=== PATIENT | female | born 1990 | race Caucasian/White ===

== ENCOUNTER 2019-09-18 10:54 | Emergency (ER) | payer SELFPAY ==
[2019-09-18 11:08] VITALS: BP 123/93; PULSE 79; RESP 16; TEMP 36.6; O2SAT 99; BMI 19.5
--- NOTE | 2019-09-18 11:33 | ED_ITS ---
HPI - Abdominal Pain General: Chief Complaint: Abdominal Pain Stated Complaint: blood in urine, reports pelvic pain for 2 days with clots, patient completed menstral cycle yesterday, states clots are from urine, AZO has helped with pain Time Seen by Provider: 09/18/19 11:24 History of Present Illness: Associated Symptoms: Reports dysuria and hematuria; Denies chills and fever(s) Related Data: Date of Last Menstrual Period: 09/11/19 Review of Systems Const: Reports: malaise; Denies: fever or chills Eyes: Denies: eye discomfort ENMT: Denies: throat pain, ear pain or nasal congestion Card: Denies: chest pain Resp: Denies: shortness of breath GI: Denies: abdominal pain : Reports: difficulty urinating, painful urination and blood in urine Musc: Denies: back pain Skin/Breast: Denies: rash or itching Neuro: Denies: headache PFSH ED PFSH: Statuses (acute, chronic, etc) shown below reflect problem list status as previously entered and may not be historically accurate Social History Smoking and tobacco status: current every day smoker Female Reproductive History: Date of last menstrual period: 09/11/19 Physical Exam Const: COMMON NORMALS: no apparent distress, oriented x3 and healthy appearing HENMT: COMMON NORMALS: normocephalic and external nose normal HEAD & SCALP: normocephalic FACE & SINUS: normal facial exam NOSE: external nose normal THROAT: posterior oropharynx normal Eye: COMMON NORMALS: PERRL and EOMs intact bilaterally PUPIL: Yes PERRL Neck/C-Spine: COMMON NORMALS: full ROM Lymph: LYMPHATIC: no lymphadenopathy noted Chest: COMMONS NORMALS: inspection of chest normal Resp: COMMON NORMALS: normal respiratory effort and clear to auscultation bilaterally AUSCULTATION: clear to auscultation bilaterally GI: COMMON NORMALS: normal to inspection, nondistended, normoactive bowel katharine nds, soft to palpation and non-tender PALPATION: Yes soft : COMMON NORMALS: Yes no CVA tenderness and Yes external appearance normal BLADDER/KIDNEY EXAM: Yes no CVA tenderness EXTERNAL FEMALE EXAM: Yes normal appearance of the urethra SPECULUM EXAM - VAGINA: Yes vaginal discharge SPECULUM EXAM - CERVIX: Yes cervical os closed Back/Pelvis: COMMON NORMALS: no CVA tenderness Extremity: COMMON NORMALS: normal to inspection and no pedal edema Neuro: COMMON NORMALS: oriented x3 Skin: COMMON NORMALS: no rashes or lesions noted GENERAL SKIN EXAM: no rashes or lesions noted Course Vital Signs: Vital signs: Vital Signs Temperature 97.9 F 09/18/19 11:08 Pulse Rate 70 09/18/19 12:00 Respiratory Rate 18 09/18/19 12:00 Blood Pressure 109/80 09/18/19 12:00 Pulse Oximetry 99 09/18/19 12:00 MDM - Abdominal Pain MDM Narrative: Medical decision making narrative: patient comes today for complaints of abdominal pain in suprapubic area. On exam patient has soft abdomen tenderness in the pubic area, no CVA tenderness. Respirations are even lungs are clear to auscultation. Pelvic exam noted some increased vaginal discharge but otherwise normal. Differential diagnosis STI, PID, bacterial vaginosis, cystitis, UTI. A values were significant for a wet prep positive clue cells, urine was positive white blood cells and large amount red blood cells. Reviewed exam with patient recommended treatment for bacterial vaginosis and cystitis. Encourage clear fluids reviewed that, and chlamydia would be outstanding but will contact when completed. Lab Data: Labs: Lab Results 09/18/19 09/18/19 Range/Units 11:56 11:56 Urine Color [place] (Yellow) Urine Appearance Cloudy (CLEAR) Urine pH 7.0 (5-7) Ur Specific Gravit y 1.030 (1.005-1.030) Urine Protein 3+ H (Negative) Urine Glucose (UA) Norm (Normal) Urine Ketones Negative (Negative) Urine Occult Blood 3+ H (Negative) Urine Nitrate Negative (Negative) Urine Bilirubin 3+ H (NEGATIVE) Urine Urobilinogen 4+ H (Negative) mg/dL Ur Leukocyte Edwige ase Negative (Negative) Urine RBC >100 H (0-2) /hpf Urine WBC 10-15 H (0-5) /hpf Ur Squamous Epith Cells 5-10 H (0-5) Urine Bacteria Trace (NONE) Urine Mucus 1+ Urine HCG, Qual Negative (Negative) Discharge Plan Discharge Patient Disposition: Home, Self-Care Clinical Impression: Bacterial vaginitis, Cystitis Condition: Stable Prescriptions: New cephalexin 500 mg capsule 500 mg PO Q12H 7 Days Qty: 14 RF: 0 metronidazole [Flagyl] 500 mg tablet 500 mg PO BID 7 Days Qty: 14 RF: 0 No Action Pending RF: 0 Referrals: Josie Fernando FNP [Primary Care Provider] - Discharge Diet: Advance as tolerated Discharge Activity: Resume usual activity Activity Restrictions/Additional Instructions: Drink plenty of fluids Healthy diet and activity Follow-up with primary care in one week Return to ER for high fever or worsening symptoms Coding Level of Care Code ED Filter Changing Technician for Sammi Barron Exam Problem Focused
[2019-09-18 11:51] VITALS: BP 109/80; PULSE 70; RESP 18; O2SAT 99
[2019-09-18 12:00] VITALS: BP 109/80; PULSE 70; RESP 18; O2SAT 99
--- NOTE | 2019-09-18 12:32 | PC.NURSE ---
RN assisted Mando Garcias SENIOR CLINICAL RESEARCH ASSOCIATE with pelvic exam. Vaginal cultures obtained, labeled and taken to lab.
[2019-09-18 12:37] LABS: Bilirubin Urine 3+ (NEGATIVE); Blood Urine 3+ (Negative); Glucose Urine UA Norm (Normal); Ketones Urine Negative (Negative); Leukocyte Esterase Urine Negative (Negative); Nitrate Urine Negative (Negative); Protein Urine 3+ (Negative); Urine Appearance Cloudy (CLEAR); Urine Color Orange (Yellow); Urobilinogen Urine 4+ mg/dL (Negative)
[2019-09-18 12:38] LABS: RBC Urine >100 /hpf (0-2)
[2019-09-18 12:39] LABS: Add Urine Culture? Yes; Bacteria Urine TRACE; Mucus Urine 1+
--- NOTE | 2019-09-18 12:44 | PC.NURSE ---
Discharge was reddish brown in color.
[2019-09-18 14:19] VITALS: BP 129/86; PULSE 64; RESP 16; TEMP 36.8; O2SAT 98
== END 2019-09-18 14:22 | disposition home or self-care (01) ==
LOC: ER 14:31
PROVIDERS: Nurse Practitioner Family; Emergency Provider Emergency Medicine; Family Provider Nurse Practitioner; PCP Nurse Practitioner
DX: N76.0 Acute vaginitis (principal); N30.90 Cystitis, unspecified without hematuria; F17.210 Nicotine dependence, cigarettes, uncomplicated
CPT/HCPCS: 81001; 81025; 87086; 87210; 87491; 87591; 99283; A9270; E0352

== ENCOUNTER → 2019-09-23 15:04 | Outpatient (BNVA) | payer SELFPAY | PROVIDERS: Family Provider Nurse Practitioner; PCP Nurse Practitioner; Visit Provider Nurse Practitioner | DX: J02.9 Acute pharyngitis, unspecified (principal) | CPT/HCPCS: 87081; 87880 ==

== ENCOUNTER → 2019-11-05 14:47 | Outpatient (BNVA) | payer SELFPAY | PROVIDERS: Family Provider Nurse Practitioner; PCP Nurse Practitioner; Visit Provider Nurse Practitioner | DX: J11.1 Influenza due to unidentified influenza virus with other respiratory manifestations (principal); G43.909 Migraine, unspecified, not intractable, without status migrainosus | CPT/HCPCS: 87804 ==

== ENCOUNTER 2019-12-11 05:58 | Emergency (ER) | payer SELFPAY ==
[2019-12-11 06:06] VITALS: BP 142/92; PULSE 99; RESP 18; TEMP 36.9; O2SAT 99; BMI 19.7
--- NOTE | 2019-12-11 06:07 | ED_ITS ---
HPI - General Adult General: Chief complaint: General Medical Stated complaint: throat swelling Time Seen by Provider: 12/11/19 06:07 History of Present Illness: HPI narrative: 29-year-old female Associated symptoms: Deny chest pain, dyspnea, malaise, nausea, rash or vomiting Review of Systems Const: Denies: fever, chills, body aches, change in appetite, fatigue or malaise ENMT: Denies: throat pain, ear pain, nasal discharge or nasal congestion Card: Denies: chest pain, edema, shortness of breath on exertion or shortness of breath when lying down Resp: Denies: shortness of breath, productive cough or non-productive cough GI: Denies: abdominal pain, nausea, vomiting, vomiting blood, coffee grounds in vomit, diarrhea, constipation, bloating, blood in stool or black tarry stool : Denies: flank pain, difficulty urinating, painful urination, urinary frequency or urinary urgency Skin/Breast: Denies: rash or itching PFSH ED PFSH: Social History (Updated 11/05/19 @ 14:45 by Kiara Mccurdy LPN) Smoking and tobacco status: current every day smoker Alcohol intake: current Female Reproductive History: Date of last menstrual period: 09/11/19 Physical Exam Const: COMMON NORMALS: no apparent distress GENERAL APPEARANCE: cooperative and comfortable ORIENTATION/CONSCIOUSNESS: Yes awake, Yes oriented to person, Yes oriented to place and Yes oriented to time HENMT: COMMON NORMALS: normocephalic, head/scalp atraumatic, hearing grossly normal bilaterally, external ears normal, EAC's normal, TM's normal bilaterally, nasal mucous membranes and turbinates normal and moist oral mucous membranes HEAD & SCALP: normocephalic and atraumatic NOSE: nasal mucous membranes and turbinates normal EXTERNAL EAR: Yes external ears normal EXTERNAL AUDITORY CANAL: EAC's normal TYMPANIC MEMBRANE: TM's normal bilaterally OTHER: Right half of the soft palate and uvula and tonsillar pillars are mildly edematous and erythematous there is no exudate. No evidence of abscess. No lacerations or petechiae. Eye: COMMON NORMALS: PERRL, EOMs intact bilaterally, conjunctivae normal and no scleral icterus CONJUNCTIVA: Yes conjunctivae normal PUPIL: Yes PERRL Neck/C-Spine: COMMON NORMALS: full ROM, no lymphadenopathy, supple and no JVD Lymph: LYMPHATIC: no lymphadenopathy noted and no lymphedema noted OTHER: No submandibular cervical lymphadenopathy is noted Resp: COMMON NORMALS: normal respiratory effort, no retractions, no use of accessory muscles and clear to auscultation bilaterally AUSCULTATION: clear to auscultation bilaterally Cardio: COMMON NORMALS: no JVD, regular rate, regular rhythm and no murmurs RATE: regular rate RHYTHM: regular rhythm GI: COMMON NORMALS: soft to palpation and no hepatosplenomegaly AUSCULTATION: Yes normoactive bowel sounds PALPATION: Yes soft, No tender, No guarding and Yes no hepatosplenomegaly Extremity: COMMON NORMALS: normal to inspection, normal capillary refill, no clubbing, cyanosis or edema, no calf tenderness and no pedal edema Neuro: SENSORIUM/ORIENTATION: Yes oriented to person, Yes oriented to place and Yes oriented to time Skin: COMMON NORMALS: no rashes or lesions noted GENERAL SKIN EXAM: no rashes or lesions noted Course Vital Signs: Vital signs: Vital Signs Temperature 98.4 F 12/11/19 06:06 Pulse Rate 78 12/11/19 08:42 Respiratory Rate 19 H 12/11/19 08:42 Blood Pressure 133/85 12/11/19 08:42 Pulse Oximetry 97 12/11/19 08:42 MDM - General Adult MDM Narrative: Medical decision making narrative: Strep is negative. The swelling and erythema are fairly impressive there is no evidence of trauma we will go ahead and discharge her home on clindamycin. She was treated with steroids and anti-inflammatories here she can continue to use ibuprofen as needed Lab Data: Labs: Lab Results 12/11/19 12/11/19 Range/Units 06:11 06:38 Influenza Type A A g Negative (Negative) POC Influenza B Ag Negative (Negative) Group A Strep Rapi d Negative (Negative) Discharge Plan Discharge Patient Disposition: Home, Self-Care Clinical Impression: Pharyngitis, acute Condition: Stable Prescriptions: New clindamycin HCl 300 mg capsule 300 mg PO Q6H 7 Days Qty: 28 RF: 0 Discharge Orders: Discharge Order (Routine); Ordered 12/11/19 Ordered By: Juan Luis Weaver Referrals: Josie Fernando FNP [Primary Care Provider] - Discharge Diet: Advance as tolerated Discharge Activity: Resume usual activity Activity Restrictions/Additional Instructions: Follow-up with your doctor in 5 days if not improving Discharge Date/Time: 12/11/19 08:42 Coding Level of Care Code ED Development Scientist for Sammi Barron
[2019-12-11] MEDS: ketorolac 60 mg/2 mL INJ IM (06:33)
[2019-12-11 06:40] LABS: Rapid Strep A Test Negative (Negative)
[2019-12-11 06:58] LABS: Influenza A by IFA Negative (Negative); Influenza B by IFA Negative (Negative)
[2019-12-11 08:10] VITALS: BP 118/76; PULSE 69; O2SAT 98
[2019-12-11] MEDS: dexamethasone 10 mg/mL INJ IM (08:22)
[2019-12-11 08:42] VITALS: BP 133/85; PULSE 78; RESP 19; O2SAT 97
== END 2019-12-11 08:42 | disposition home or self-care (01) ==
PROVIDERS: Emergency Provider Family Medicine; Family Provider Nurse Practitioner; PCP Nurse Practitioner
DX: J02.9 Acute pharyngitis, unspecified (principal); F17.200 Nicotine dependence, unspecified, uncomplicated
CPT/HCPCS: 12345; 87081; 87804; 87880; 96372; 99281; 99283; J1100; J1885

== ENCOUNTER 2020-03-05 12:04 | Emergency (ER) | payer SELFPAY ==
[2020-03-05 12:31] VITALS: BP 112/83; PULSE 89; RESP 18; TEMP 36.7; O2SAT 98; BMI 21.6
--- NOTE | 2020-03-05 12:49 | ED_ITS ---
HPI - Extremity Problem General: Chief complaint: Extremity Injury, Upper Stated complaint: RIGHT ARM PAIN Time Seen by Provider: 03/05/20 12:30 Source: patient Mode of arrival: ambulatory Limitations: no limitations History of Present Illness: HPI Narrative: Patient is a 29-year-old female who presents to ED today with complaints of right arm pain that began yesterday/today. She has not had any recent injury or trauma to the extremity. Patient tells me she has a history of extensive trauma to the extremity after punching a window and stating the glass caused a severing of her radial artery. She also told me she had extensive muscular and tendon damage. Patient was transferred to [place] and had specialty vascular and orthopedic surgeries to repair the extremity. She tells me she does have chronic tendon damage since the surgery but overall has fairly good use of her extremity. Patient states she had not been having any problems with the extremity up until yesterday and into today when she began having pain about her right AC joint. Patient has not noticed any coolness/pallor, redness, swelling, sensory changes to the extremity. She denies IV drug use. MD Complaint: extremity pain Review of Systems Musc: Reports: extremity pain and joint pain (volar R elbow/AC space); Denies: extremity swelling, joint swelling, joint redness or joint warmth Neuro: Denies: numbness in extremities, weakness in extremities or sensory changes [facility] ED PFSH: Social History (Updated 11/05/19 @ 14:45 by Kiara Mccurdy LPN) Smoking and tobacco status: current every day smoker Alcohol intake: current Female Reproductive History: Date of last menstrual period: 02/24/20 Physical Exam Const: COMMON NORMALS: no acute distress, average body habitus, patient oriented x3, no limitations, healthy appearing, alert and well nourished Extremity: GENERAL: Yes normal exam except as noted OTHER: pt with exten sive previous surgical scar to volar R forearm; she has chronic tendon/muscle damage; she complains of pain to her R AC joint and reports she cannot fully extend her arm without pain; sensory appears to be intact; there is no swelling appreciated; cap refil intact Neuro: COMMON NORMALS: patient oriented x3 and no sensory deficits noted SENSORIUM/ORIENTATION: Yes alert Skin: NARRATIVE SKIN EXAM: previous R volar forearm scar; otherwise normal Course Vital Signs: Vital signs: Vital Signs Temperature 98.1 F 03/05/20 12:31 Pulse Rate 89 03/05/20 12:31 Respiratory Rate 18 03/05/20 12:31 Blood Pressure 112/83 03/05/20 12:31 Pulse Oximetry 98 03/05/20 12:31 MDM - Extremity (Nontraumatic) MDM Narrative: Medical decision making narrative: there is no evidence for infection, vascular compromise, DVT, compartment syndrome, or any other emergent process at this time; recommend she follow up with [facility] who performed her surgeries to further evaluate (will place info with CM to help get this set up); return to ED precautions given Imaging Data^: US venous : Radiologist's impression: [place] [address] Ultrasound Report Signed Patient: Varghese Heath #: [id number] : 1990Acct#:[id number] Age/Sex: 29 / FADM Date: 03/05/20 Loc: ERRoom/Bed: Attending Dr: Ordering Provider/Ordering MD: Montse Goldsmith Date of Service: 03/05/20 Procedure(s): [place] [id number] Accession Number(s): [id number] Report Number: [id number] PROCEDURE INFORMATION: Exam: US Duplex Right Upper Extremity Veins, Limited Exam date and time: 03/05/2020 12:49 PM Age: 29 years old Clinical indication: Pain; Arm, upper; Right; Prior surgery; Surgery type: Previous arterial resection/repair (antecubilar area) approximately 2 years ago; Additional info: Pain over ac joint TECHNIQUE: Imaging protocol: Real-time Duplex ultrasound of the Right Upper Extremity with 2-D jacob scale, color Doppler flow and spectral waveform analysis with image documentation. Limited exam focused on the right upper extremity veins. COMPARISON: No relevant prior studies available. FINDINGS: Right deep veins: Axillary and brachial veins are patent throughout without thrombus. Normal Doppler waveforms. Normal compressibility and/or augmentation response. Visualized internal jugular and subclavian veins are patent. Right superficial veins: Visualized cephalic and basilic veins are patent without thrombus. Soft tissues: Unremarkable. US/[place] [id number] IMPRESSION: No evidence of deep vein thrombosis. Dictated By:Bowen Solomon Signed By:Guadalupe Solomon Date/Time:03/05/20 142 DD/ 142 US arterial : Radiologist's impression: [facility] [address] [place] [address] Ultrasound Report Signed Patient: Varghese Heath #: [id number] : 1990Acct#:[id number] Age/Sex: 29 / FADM Date: 03/05/20 Loc: ERRoom/Bed: Attending Dr: Ordering Provider/Ordering MD: Montse Goldsmith Date of Service: 03/05/20 Procedure(s): [place] [id number] Accession Number(s): [id number] Report Number: [id number] PROCEDURE INFORMATION: Exam: US Duplex Right Upper Extremity Arteries Exam date and time: 03/05/2020 12:49 PM Age: 29 years old Clinical indication: Pain; Arm, upper; Right; Prior surgery; Surgery type: Arterial resection/repair (antecubital area0, approximately 2 years ago; Additional info: R ac/forearm pain; Previous arterial resection/repair TECHNIQUE: Imaging protocol: Right Real-time ultrasound scan of the arteries of the right upper extremity with 2-D jacob scale, color Doppler flow and spectral waveform analysis. COMPARISON: No relevant prior studies available. FINDINGS: Right subclavian artery: PSV = 121 cm/s. No occlusion or significant stenosis. Normal waveform. Right axillary artery: PSV = 76 cm/s. No occlusion or significant stenosis. Normal waveform. Right brachial artery: PSV = 129 cm/s. No occlusion or significant stenosis. Normal waveform. Right radial artery: PSV = 87 cm/s. No occlusion or significant stenosis. Normal waveform. Right ulnar artery: PSV = 99 cm/s. No occlusion or significant stenosis. Normal waveform. US/[place] [id number] IMPRESSION: No occlusion or significant stenosis. Dictated By:Bowen Solomon Signed By:Guadalupe Solomon Date/Time:03/05/20 143 DD/ 143 Discharge Plan Discharge Patient Disposition: Home, Self-Care Clinical Impression: Arm pain, right Condition: Stable Prescriptions: No Action multivitamin Tablet 1 tab PO DAILY RF: 0 Discharge Orders: Discharge Order (Routine); Ordered 03/05/20 Ordered By: Montse Goldsmith Activity Restrictions/Additional Instructions: As discussed please follow-up with [facility] for further evaluation. Case management should contact you to try to help facilitate this appointment. Return to the emergency department for worsening pain, redness, swelling, changes in color or temperature to your extremity, or any other concerns you may have. Coding Level of Care Code ED Research And Development Tester for Sammi Fwd Exam Expanded Problem Focused
[2020-03-05 15:00] VITALS: BP 131/79; PULSE 75; RESP 16; O2SAT 97
--- NOTE | 2020-03-08 15:45 | DCPLANNER ---
beverage manager had message to schedule a follow up with [facility] in [place]. beverage manager called the [facility] clinic, spoke with the ortho clinic, faxed patients records to the clinic. beverage manager will call for follow up appointment.
--- NOTE | 2020-03-11 08:28 | DCPLANNER ---
assistant manager quality management called Shen cooper at [facility] to confirm if an appointment had been made. assistant manager quality management was told that clinic did receive referral and has tried to call patient with appointment information, but has not been able to reach patient. assistant manager quality management called phone number [phone] and left a voicemail for patient to return egg caser phone call.
== END 2020-03-05 15:05 | disposition home or self-care (01) ==
PROVIDERS: Emergency Provider Physician Assistant
DX: M79.601 Pain in right arm (principal); F17.210 Nicotine dependence, cigarettes, uncomplicated
CPT/HCPCS: 12345; 93931; 93971; 99281; 99283

== ENCOUNTER 2020-07-23 06:27 | Emergency (ER) | payer SELFPAY ==
[2020-07-23 06:35] VITALS: BP 131/70; PULSE 86; RESP 14; TEMP 36.8; O2SAT 99; BMI 21.9
[2020-07-23] MEDS: sodium chloride 0.9% 1,000 ML 999 ML IV ×2 (06:57→07:57)
--- NOTE | 2020-07-23 07:08 | W.ED.ABDPA2 ---
HPI - Abdominal Pain General: Chief Complaint: Abdominal Pain Stated Complaint: ABDOMINAL PAIN Time Seen by Provider: 07/23/20 06:43 History of Present Illness: HPI narrative: 29-year-old female comes in with complaints of epigastric pain radiating to her back. This started about 4 5 days ago and has been progressively worsening. She states she has a history of idiopathic gastroparesis and gastroesophageal reflux disease. She states she has chronic loose stools that have not really changed significantly of late and either character or frequency or volume. She denies any hematochezia melena hematemesis or coffee-ground emesis. Her periods stopped 1 week ago and she reports it was normal. This is been a chronic problem for her she is not taken any antiemetic she is not noticed any triggering foods or events. She is Dr. Benton and a nurse practitioner as a primary care doctor. She has not been seeing GI lately she is currently not on anything for irritable bowel syndrome. MD elicited complaint: abdominal pain Pertinent past history: other (Irritable bowel and idiopathic gastroparesis) Onset (ago): day(s) Pain Consistency: constant and colicky Location: Epigastric Severity: moderate Quality: cramping Radiation: epigastric Migration to: LUQ and RUQ Exacerbating factors: nothing Relieving factors: nothing Associated Symptoms: Reports anorexia, bloating, diarrhea (At baseline and unchanged), dyspepsia, nausea, poor appetite and vomiting; Denies belching, change in bowel habits, change in stool character, chills, coffee ground emesis, constipation, dysuria, excessive flatus, fever(s), heartburn, hematochezia, hematuria, hematemesis, loose stools, melena and syncope Related Data: Date of Last Menstrual Period: 07/15/20 Review of Systems Const: Denies: fever(s) or chills ENMT: Denies: throat pain, ear or mastoid pain, nasal discharge or nasal congestion Card: Denies: syncope Resp: Denies: dyspnea, productive cough or non-productive cough GI: Reports: nausea, vomiting, diarrhea (At baseline and unchanged) and bloating; Denies: hematemesis, coffee ground emesis, heartburn, constipation, belching, excessive flatus, change in bowel habits, change in stool character, hematochezia or melena : Denies: dysuria or hematuria Skin/Breast: Denies: rash or pruritus PFSH ED PFSH: Social History Smoking and tobacco status: current every day smoker Alcohol intake: current Female Reproductive History: Date of last menstrual period: 07/15/20 Physical Exam Const: COMMON NORMALS: no acute distress GENERAL APPEARANCE: cooperative and comfortable ORIENTATION/CONSCIOUSNESS: Yes awake, Yes oriented to person, Yes oriented to place and Yes oriented to time HENMT: COMMON NORMALS: normocephalic, atraumatic and hearing grossly normal bilaterally HEAD & SCALP: normocephalic and atraumatic Eye: COMMON NORMALS: Equal, round and reactive pupils present, EOMs intact bilaterally, conjunctivae normal and no scleral icterus CONJUNCTIVA: Yes conjunctivae normal PUPIL: Yes Equal, round and reactive pupils present Neck/C-Spine: COMMON NORMALS: full ROM, no lymphadenopathy, supple and no JVD Lymph: LYMPHATIC: no lymphadenopathy noted and no lymphedema noted Resp: COMMON NORMALS: normal respiratory effort, No retractions, No use of accessory muscles and clear to auscultation bilaterally AUSCULTATION: clear to auscultation bilaterally Cardio: COMMON NORMALS: no JVD, regular rate, regular rhythm and No murmurs present (Cardio) RATE: regular rate RHYTHM: regular rhythm GI: COMMON NORMALS: No hepatosplenomegaly present AUSCULTATION: Yes normoactive bowel sounds PALPATION: Yes Tenderness to palpation present (GI) (Epigastric and generally in the upper abdomen no guarding or rebound), No Guarding due to palpation present (GI) and Yes No hepatosplenomegaly present Extremity: COMMON NORMALS: normal to inspection, capillary refill normal, no clubbing, cyanosis or edema, no calf tenderness and no pedal edema Neuro: SENSORIUM/ORIENTATION: Yes oriented to person, Yes oriented to place and Yes oriented to time Skin: COMMON NORMALS: no rashes or lesions noted GENERAL SKIN EXAM: no rashes or lesions noted Course Vital Signs: Vital signs: Vital Signs Temperature 98.3 F 07/23/20 06:35 Pulse Rate 69 07/23/20 07:37 Respiratory Rate 18 07/23/20 07:11 Blood Pressure 115/78 07/23/20 07:37 Pulse Oximetry 97 07/23/20 07:11 MDM - Abdominal Pain MDM Narrative: Medical decision making narrative: Clear liquid diet for the next 24 to 48 hours advance as tolerated after that. Restart omeprazole 20 mg daily and promethazine 12.5 every 6 hours as needed. Recommend following up with primary care within the week. Lab Data: Labs: Lab Results 07/23/20 07/23/20 07/23/20 Range/Units 06:42 06:42 06:42 WBC 7.1 (4.0-10.0) 10^3/ uL RBC 3.61 L (4.1-5.3) 10^6/u L Hgb 11.4 L (11.5-15.3) g/dL Hct 33.3 L (37.0-47.0) % MCV 92.2 (81-99) fL MCH 31.6 (28.0-34.0) pg MCHC 34.2 (30.0-36.0) g/dL RDW 12.0 L (12.1-15.1) % Plt Count 303 (130-400) 10^3/c mm MPV 9.5 (7.4-10.4) fL Neut % (Auto) 51.3 % Lymph % (Auto) 34.7 % [place] % (Auto) 9.7 % Eos % (Auto) 3.4 % Baso % (Auto) 0.6 % Neut # (Auto) 3.66 (1.8-7.7) 10^3/u L Lymph # (Auto) 2.5 (0.8-4.8) 10^3/u L [place] # (Auto) 0.7 (0.2-0.9) 10^3/u L Eos # (Auto) 0.2 (0.0-0.8) 10^3/u L Baso # (Auto) 0.0 (0.0-0.1) 10^3/u L Nucleated RBC % (a uto) 0 % Nucleated RBCs # 0.0 /100WBC Sodium 137 (136-145) mmol/L Potassium 3.4 L (3.5-5.1) mmol/L Chloride 102 (98-107) mmol/L Carbon Dioxide 25 (22-29) mmol/L Anion Gap 13.4 (5-19) BUN 14 (6-20) mg/dL Creatinine 0.7 (0.5-0.9) mg/dL GFR Calculation 98.3 (90-130) mL/min Glucose 117 H (65-115) mg/dL Calculated Osmolal ity 286 (285-295) mOsm/k g Calcium 9.0 (8.5-10.5) mg/dL Total Bilirubin 0.3 (0.15-1.2) mg/dL AST 15 (0-32) U/L ALT 15 (0-33) U/L Alkaline Phosphata se 65 (35-105) IU/L Total Protein 6.9 (6.6-8.7) g/dL Albumin 4.5 (3.5-5.2) g/dL Globulin 2.4 (1.3-4.6) g/dL Lipase 24 (13-60) U/L HCG, Qual Negative (Negative) Urine Color (Yellow) Urine Appearance (CLEAR) Urine pH (5-7) Ur Specific Gravit y (1.005-1.030) Urine Protein (Negative) Urine Glucose (UA) (Normal) Urine Ketones (Negative) Urine Blood (Negative) Urine Nitrate (Negative) Urine Bilirubin (Negative) Urine Urobilinogen (Negative) mg/dL Ur Leukocyte Edwige ase (Negative) 07/23/20 Range/Units 07:03 WBC (4.0-10.0) 10^3/ uL RBC (4.1-5.3) 10^6/u L Hgb (11.5-15.3) g/dL Hct (37.0-47.0) % MCV (81-99) fL MCH (28.0-34.0) pg MCHC (30.0-36.0) g/dL RDW (12.1-15.1) % Plt Count (130-400) 10^3/c mm MPV (7.4-10.4) fL Neut % (Auto) % Lymph % (Auto) % [place] % (Auto) % Eos % (Auto) % Baso % (Auto) % Neut # (Auto) (1.8-7.7) 10^3/u L Lymph # (Auto) (0.8-4.8) 10^3/u L [place] # (Auto) (0.2-0.9) 10^3/u L Eos # (Auto) (0.0-0.8) 10^3/u L Baso # (Auto) (0.0-0.1) 10^3/u L Nucleated RBC % (a uto) % Nucleated RBCs # /100WBC Sodium (136-145) mmol/L Potassium (3.5-5.1) mmol/L Chloride (98-107) mmol/L Carbon Dioxide (22-29) mmol/L Anion Gap (5-19) BUN (6-20) mg/dL Creatinine (0.5-0.9) mg/dL GFR Calculation (90-130) mL/min Glucose (65-115) mg/dL Calculated Osmolal ity (285-295) mOsm/k g Calcium (8.5-10.5) mg/dL Total Bilirubin (0.15-1.2) mg/dL AST (0-32) U/L ALT (0-33) U/L Alkaline Phosphata se (35-105) IU/L Total Protein (6.6-8.7) g/dL Albumin (3.5-5.2) g/dL Globulin (1.3-4.6) g/dL Lipase (13-60) U/L HCG, Qual (Negative) Urine Color Yellow (Yellow) Urine Appearance Clear (CLEAR) Urine pH 6.5 (5-7) Ur Specific Gravit y 1.020 (1.005-1.030) Urine Protein Neg (Negative) Urine Glucose (UA) Norm (Normal) Urine Ketones Negative (Negative) Urine Blood Neg (Negative) Urine Nitrate Negative (Negative) Urine Bilirubin Neg (Negative) Urine Urobilinogen Norm (Negative) mg/dL Ur Leukocyte Edwige ase Negative (Negative) Discharge Plan Discharge Patient Disposition: Home Clinical Impression: Irritable bowel, Diabetic gastroparesis Condition: Stable Prescriptions: New promethazine 12.5 mg tablet 12.5 mg PO Q6H PRN (Reason: nausea and vomiting) Qty: 30 RF: 0 omeprazole 20 mg capsule,delayed release(DR/EC) 20 mg PO DAILY 30 Days Qty: 30 RF: 0 No Action multivitamin Tablet 1 tab PO DAILY RF: 0 Discharge Orders: Discharge Order (Routine); Ordered 07/23/20 Ordered By: Juan Luis Weaver Discharge Diet: Clear Liquid Discharge Activity: Increase activity as tolerated Activity Restrictions/Additional Instructions: Follow-up with your primary care doctor within the next week. Return if you have further problems. Coding Level of Care Code ED Nurse Case Manager for Chg Fwd Exam Comprehensive
[2020-07-23 07:09] LABS: Add Urine Microscopic? NO
[2020-07-23 07:11] VITALS: RESP 18; O2SAT 97
[2020-07-23] MEDS: morphine 4 mg/mL SDV 1 mL IVP (07:11)
[2020-07-23] MEDS: ondansetron 2 mg/ML SDV 2 mL 4 MG IVP (07:12)
[2020-07-23 07:13] LABS: Alanine Aminotransferase 15 U/L (0-33); Albumin Level 4.5 g/dL (3.5-5.2); Alkaline Phosphatase 65 IU/L (35-105); Anion Gap 13.4 (5-19); Aspartate Amino Transferase 15 U/L (0-32); Blood Urea Nitrogen 14 mg/dL (6-20); Carbon Dioxide 25 mmol/L (22-29); Chloride 102 mmol/L (98-107); Globulin 2.4 g/dL (1.3-4.6); Glomerular Filtration Rate 98.3 mL/min (90-130); Glucose 117 mg/dL (65-115); Lipase 24 U/L (13-60); Osmolality Calculated 286 mOsm/kg (285-295); Potassium 3.4 mmol/L (3.5-5.1); Sodium 137 mmol/L (136-145); Total Bilirubin 0.3 mg/dL (0.15-1.2); Total Protein 6.9 g/dL (6.6-8.7)
[2020-07-23 07:16] LABS: Basophils % 0.6 %; Eosinophils # 0.2 10^3/uL (0.0-0.8); Eosinophils % 3.4 %; Hematocrit 33.3 % (37.0-47.0); Hemoglobin 11.4 g/dL (11.5-15.3); Lymphocytes # 2.5 10^3/uL (0.8-4.8); Lymphocytes % 34.7 %; Mean Corpuscular HGB Conc 34.2 g/dL (30.0-36.0); Mean Corpuscular Hemoglobin 31.6 pg (28.0-34.0); Mean Corpuscular Volume 92.2 fL (81-99); Mean Platelet Volume 9.5 fL (7.4-10.4); Monocytes # 0.7 10^3/uL (0.2-0.9); Monocytes % 9.7 %; Neutrophils # 3.66 10^3/uL (1.8-7.7); Neutrophils % 51.3 %; Nucleated Red Blood Cells % 0 %; Platelet Count 303 10^3/cmm (130-400); Red Blood Count 3.61 10^6/uL (4.1-5.3); White Blood Count 7.1 10^3/uL (4.0-10.0)
[2020-07-23 07:19] LABS: HCG, Serum Qual Negative (Negative)
[2020-07-23 07:33] LABS: Bilirubin Urine Neg (Negative); Blood Urine Neg (Negative); Glucose Urine UA Norm (Normal); Ketones Urine Negative (Negative); Leukocyte Esterase Urine Negative (Negative); Nitrate Urine Negative (Negative); Protein Urine Neg (Negative); Urine Appearance Clear (CLEAR); Urine Color Yellow (Yellow); Urobilinogen Urine Norm (Negative); pH Urine 6.5 (5-7)
[2020-07-23 07:37] VITALS: BP 115/78; BP 121/87; BP 123/84; PULSE 69; PULSE 70; PULSE 86
[2020-07-23] MEDS: lidocaine 2% viscous 15 ML, aluminum-mag hydrox-simethicon 30 ML, sucralfate oral liq 1 GM PO (07:56)
[2020-07-23] MEDS: ketorolac 30 mg/mL INJ IVP (08:56)
[2020-07-23 09:04] VITALS: BP 118/76; PULSE 92; RESP 18; O2SAT 96
== END 2020-07-23 09:11 | disposition home or self-care (01) ==
PROVIDERS: Emergency Provider Family Medicine
DX: E11.43 Type 2 diabetes mellitus with diabetic autonomic (poly)neuropathy (principal); K31.84 Gastroparesis; K58.9 Irritable bowel syndrome, unspecified; F17.210 Nicotine dependence, cigarettes, uncomplicated
CPT/HCPCS: 12345; 80053; 81003; 83690; 84703; 85025; 96361; 96374; 96375; 96376; 99283; J1885; J2270; J2405; J7030

== ENCOUNTER 2020-10-15 17:58 | Emergency (ER) | payer SELFPAY ==
[2020-10-15 19:11] VITALS: BP 131/88; PULSE 78; RESP 14; TEMP 36.7; O2SAT 99; BMI 22.3
[2020-10-15 20:23] VITALS: BP 124/84; PULSE 78; RESP 16; O2SAT 98
[2020-10-15 20:47] VITALS: BP 114/67; RESP 17
--- NOTE | 2020-10-15 21:00 | W.ED.ABDPA2 ---
HPI - Abdominal Pain General: Chief Complaint: Abdominal Pain Stated Complaint: ABD PAIN, N/V Time Seen by Provider: 10/15/20 18:41 History of Present Illness: HPI narrative: 30-year-old female with a history of gastroparesis GERD and IBS she states. She states that she has had a flareup for the past 3 days or so. She was much worse tonight. She denies any vomiting. States she has had some loose stools. No blood. She has a history of a cholecystectomy. MD elicited complaint: abdominal pain Pertinent past history: gastritis and other Onset (ago): day(s) Pain Consistency: constant Location: Periumbilical and LUQ Quality: cramping and stabbing Radiation: none Exacerbating factors: eating Relieving factors: nothing Associated Symptoms: Reports belching, change in bowel habits, change in stool character, diarrhea, dyspepsia, loose stools and nausea; Denies fever(s), hematuria, hematemesis and vomiting Related Data: Date of Last Menstrual Period: 07/15/20 Review of Systems Const: Denies: fever(s) Eyes: Denies: change in vision ENMT: Denies: odynophagia, post nasal drip or sinus pain Card: Denies: chest pain, palpitations or irregular heart rhythm Resp: Denies: dyspnea, productive cough, non-productive cough or wheezing GI: Reports: nausea, diarrhea, belching, change in bowel habits and change in stool character; Denies: vomiting or hematemesis : Denies: hematuria Musc: Denies: neck pain, back pain, joint redness or joint warmth Skin/Breast: Denies: rash, pruritus or erythema Neuro: Denies: headache(s), dizziness or vertigo Psych: Denies: anxiety PFSH ED PFSH: Social History Smoking and tobacco status: current every day smoker Alcohol intake: current Female Reproductive History: Date of last menstrual period: 07/15/20 Physical Exam Const: GENERAL APPEARANCE: well developed ORIENTATION/CONSCIOUSNESS: Yes oriented to person, Yes oriented to place and Yes oriented to time HENMT: COMMON NORMALS: normocephalic, external ears normal and Normal external nose present HEAD & SCALP: normocephalic; no scalp tenderness FACE & SINUS: normal facial exam NOSE: Normal external nose present and No nasal discharge present EXTERNAL EAR: Yes external ears normal Eye: COMMON NORMALS: Equal, round and reactive pupils present, EOMs intact bilaterally and conjunctivae normal EYELID: eyelids normal CONJUNCTIVA: Yes conjunctivae normal PUPIL: Yes Equal, round and reactive pupils present Neck/C-Spine: GENERAL: No tracheal deviation Chest: COMMONS NORMALS: normal inspection of the chest CHEST: No tenderness Resp: COMMON NORMALS: clear to auscultation bilaterally EFFORT & INSPECTION: No tachypneic, No respiratory distress, No retractions, No uses accessory muscles and No tracheal deviation AUSCULTATION: clear to auscultation bilaterally, no rhonchi, no wheezes and lung sounds not diminished Cardio: COMMON NORMALS: regular rate and regular rhythm RATE: regular rate RHYTHM: regular rhythm HEART SOUNDS: no murmurs PERIPHERAL PULSES: radial pulses present GI: INSPECTION: No abdominal distension AUSCULTATION: No Hyperactive bowel sounds present and No Hypoactive bowel sounds present PALPATION: Yes Tenderness to palpation present (GI) Details: LUQ, Yes Guarding due to palpation present (GI) and No Rigid due to palpation PERCUSSION: no dullness to percussion and no tympanic to percussion Neuro: SENSORIUM/ORIENTATION: Yes oriented to person, Yes oriented to place and Yes oriented to time Psych: COMMON NORMALS: mental status grossly normal Skin: COMMON NORMALS: no rashes or lesions noted GENERAL SKIN EXAM: no rashes or lesions noted Course Vital Signs: Vital signs: Vital Signs Temperature 98.0 F 10/15/20 19:11 Pulse Rate 78 10/15/20 20:23 Respiratory Rate 17 10/15/20 20:47 Blood Pressure 114/67 10/15/20 20:47 Pulse Oximetry 98 10/15/20 20:23 MDM - Abdominal Pain MDM Narrative: Medical decision making narrative: 30-year-old female complaining of epigastric pain. Her labs are normal. She has received IV Pepcid, IV morphine Zofran and Reglan. 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 I suppose that means she is improved. She will be discharged. Lab Data: Labs: Lab Results 10/15/20 10/15/20 10/15/20 Range/Units 21:12 21:12 21:12 WBC 8.8 (4.0-10.0) 10^3/ uL RBC 4.14 (4.1-5.3) 10^6/u L Hgb 13.2 (11.5-15.3) g/dL Hct 37.8 (37.0-47.0) % MCV 91.3 (81-99) fL MCH 31.9 (28.0-34.0) pg MCHC 34.9 (30.0-36.0) g/dL RDW 11.7 L (12.1-15.1) % Plt Count 332 (130-400) 10^3/c mm MPV 9.2 (7.4-10.4) fL Neut % (Auto) 70.1 % Lymph % (Auto) 21.4 % Sullivan % (Auto) 7.2 % Eos % (Auto) 0.8 % Baso % (Auto) 0.3 % Neut # (Auto) 6.16 (1.8-7.7) 10^3/u L Lymph # (Auto) 1.9 (0.8-4.8) 10^3/u L [place] # (Auto) 0.6 (0.2-0.9) 10^3/u L Eos # (Auto) 0.1 (0.0-0.8) 10^3/u L Baso # (Auto) 0.0 (0.0-0.1) 10^3/u L Nucleated RBC % (a uto) 0 % Nucleated RBCs # 0.0 /100WBC Sodium 138 (136-145) mmol/L Potassium 3.8 (3.5-5.1) mmol/L Chloride 101 (98-107) mmol/L Carbon Dioxide 24 (22-29) mmol/L Anion Gap 16.8 (5-19) BUN 14 (6-20) mg/dL Creatinine 0.6 (0.5-0.9) mg/dL GFR Calculation 116.6 (90-130) mL/min Glucose 87 (65-115) mg/dL Calculated Osmolal ity 286 (285-295) mOsm/k g Calcium 9.7 (8.5-10.5) mg/dL Total Bilirubin 0.5 (0.15-1.2) mg/dL AST 25 (0-32) U/L ALT 28 (0-33) U/L Alkaline Phosphata se 64 (35-105) IU/L C-Reactive Protein 0.5 (0.0-4.9) mg/L Total Protein 7.4 (6.6-8.7) g/dL Albumin 4.7 (3.5-5.2) g/dL Globulin 2.7 (1.3-4.6) g/dL Lipase 18 (13-60) U/L HCG, Qual Negative (Negative) Urine Color (Yellow) Urine Appearance (CLEAR) Urine pH (5-7) Ur Specific Gravit y (1.005-1.030) Urine Protein (Negative) Urine Glucose (UA) (Normal) Urine Ketones (Negative) Urine Blood (Negative) Urine Nitrate (Negative) Urine Bilirubin (Negative) Urine Urobilinogen (Negative) mg/dL Ur Leukocyte Edwige ase (Negative) Urine RBC (0-2) /hpf Urine WBC (0-5) /hpf Ur Squamous Epith Cells (0-5) /hpf Amorphous Sediment /hpf Urine Bacteria (NONE) /hpf 10/15/20 Range/Units 21:25 WBC (4.0-10.0) 10^3/ uL RBC (4.1-5.3) 10^6/u L Hgb (11.5-15.3) g/dL Hct (37.0-47.0) % MCV (81-99) fL MCH (28.0-34.0) pg MCHC (30.0-36.0) g/dL RDW (12.1-15.1) % Plt Count (130-400) 10^3/c mm MPV (7.4-10.4) fL Neut % (Auto) % Lymph % (Auto) % [place] % (Auto) % Eos % (Auto) % Baso % (Auto) % Neut # (Auto) (1.8-7.7) 10^3/u L Lymph # (Auto) (0.8-4.8) 10^3/u L [place] # (Auto) (0.2-0.9) 10^3/u L Eos # (Auto) (0.0-0.8) 10^3/u L Baso # (Auto) (0.0-0.1) 10^3/u L Nucleated RBC % (a uto) % Nucleated RBCs # /100WBC Sodium (136-145) mmol/L Potassium (3.5-5.1) mmol/L Chloride (98-107) mmol/L Carbon Dioxide (22-29) mmol/L Anion Gap (5-19) BUN (6-20) mg/dL Creatinine (0.5-0.9) mg/dL GFR Calculation (90-130) mL/min Glucose (65-115) mg/dL Calculated Osmolal ity (285-295) mOsm/k g Calcium (8.5-10.5) mg/dL Total Bilirubin (0.15-1.2) mg/dL AST (0-32) U/L ALT (0-33) U/L Alkaline Phosphata se (35-105) IU/L C-Reactive Protein (0.0-4.9) mg/L Total Protein (6.6-8.7) g/dL Albumin (3.5-5.2) g/dL Globulin (1.3-4.6) g/dL Lipase (13-60) U/L HCG, Qual (Negative) Urine Color Yellow (Yellow) Urine Appearance Clear (CLEAR) Urine pH 9 H (5-7) Ur Specific Gravit y 1.015 (1.005-1.030) Urine Protein Neg (Negative) Urine Glucose (UA) Norm (Normal) Urine Ketones 1+ H (Negative) Urine Blood Trace H (Negative) Urine Nitrate Negative (Negative) Urine Bilirubin Neg (Negative) Urine Urobilinogen Norm (Negative) mg/dL Ur Leukocyte Edwige ase Negative (Negative) Urine RBC 0-4 H (0-2) /hpf Urine WBC 0-4 H (0-5) /hpf Ur Squamous Epith Cells 0-4 H (0-5) /hpf Amorphous Sediment 2+ /hpf Urine Bacteria Trace (NONE) /hpf Discharge Plan Discharge Patient Disposition: Home Clinical Impression: Gastritis Qualifiers: Gastritis type: unspecified gastritis Chronicity: chronic Gastritis bleeding: without bleeding Qualified Code(s): K29.50 - Unspecified chronic gastritis without bleeding Condition: Stable Prescriptions: New Prevacid 30 mg capsule,delayed release(DR/EC) 30 mg PO DAILY Qty: 30 RF: 0 Reglan 10 mg tablet 10 mg PO Q6H PRN (Reason: nausea and vomiting) Qty: 14 RF: 0 No Action promethazine 12.5 mg tablet 12.5 mg PO Q6H PRN (Reason: nausea and vomiting) Qty: 30 RF: 0 multivitamin Tablet 1 tab PO DAILY RF: 0 Discharge Orders: Discharge ED (Routine); Ordered 10/15/20 Ordered By: Adam Rutledge Referrals: Krystle Sanders DO [Primary Care Provider] - Nawaf Benton MD [Physician] - 4-7 days Discharge Diet: Advance as tolerated Discharge Activity: Increase activity as tolerated Patient Instructions: Gastritis (ED) Coding Level of Care Code ED Supervisor/Port Director for Chg Fwd Exam Comprehensive
[2020-10-15 21:24] LABS: Basophils % 0.3 %; Eosinophils # 0.1 10^3/uL (0.0-0.8); Eosinophils % 0.8 %; Hematocrit 37.8 % (37.0-47.0); Hemoglobin 13.2 g/dL (11.5-15.3); Lymphocytes # 1.9 10^3/uL (0.8-4.8); Lymphocytes % 21.4 %; Mean Corpuscular HGB Conc 34.9 g/dL (30.0-36.0); Mean Corpuscular Hemoglobin 31.9 pg (28.0-34.0); Mean Corpuscular Volume 91.3 fL (81-99); Mean Platelet Volume 9.2 fL (7.4-10.4); Monocytes # 0.6 10^3/uL (0.2-0.9); Monocytes % 7.2 %; Neutrophils # 6.16 10^3/uL (1.8-7.7); Neutrophils % 70.1 %; Nucleated Red Blood Cells % 0 %; Platelet Count 332 10^3/cmm (130-400); Red Blood Count 4.14 10^6/uL (4.1-5.3); Red Cell Distribution Width 11.7 % (12.1-15.1); White Blood Count 8.8 10^3/uL (4.0-10.0)
[2020-10-15] MEDS: morphine 4 mg/mL SDV 1 mL IVP (21:30)
[2020-10-15] MEDS: ondansetron 2 mg/ML SDV 2 mL 4 MG IVP (21:30)
[2020-10-15] MEDS: metoclopramide 5 mg/mL SDV 2 mL 10 MG IVP (21:30)
[2020-10-15] MEDS: sodium chloride 0.9% 1,000 ML 999 ML IV (21:30)
[2020-10-15 21:34] LABS: HCG, Serum Qual Negative (Negative)
[2020-10-15 21:43] LABS: Alanine Aminotransferase 28 U/L (0-33); Albumin Level 4.7 g/dL (3.5-5.2); Alkaline Phosphatase 64 IU/L (35-105); Anion Gap 16.8 (5-19); Aspartate Amino Transferase 25 U/L (0-32); Blood Urea Nitrogen 14 mg/dL (6-20); C Reactive Protein 0.5 mg/L (0.0-4.9); Calcium 9.7 mg/dL (8.5-10.5); Carbon Dioxide 24 mmol/L (22-29); Chloride 101 mmol/L (98-107); Globulin 2.7 g/dL (1.3-4.6); Glomerular Filtration Rate 116.6 mL/min (90-130); Glucose 87 mg/dL (65-115); Lipase 18 U/L (13-60); Osmolality Calculated 286 mOsm/kg (285-295); Potassium 3.8 mmol/L (3.5-5.1); Sodium 138 mmol/L (136-145); Total Bilirubin 0.5 mg/dL (0.15-1.2); Total Protein 7.4 g/dL (6.6-8.7)
[2020-10-15 21:56] LABS: Add Urine Microscopic? YES; Bilirubin Urine Neg (Negative); Blood Urine Trace (Negative); Glucose Urine UA Norm (Normal); Ketones Urine 1+ (Negative); Leukocyte Esterase Urine Negative (Negative); Nitrate Urine Negative (Negative); Protein Urine Neg (Negative); Specific Gravity, Urine 1.015 (1.005-1.030); Urine Appearance Clear (CLEAR); Urine Color Yellow (Yellow); Urobilinogen Urine Norm (Negative); pH Urine 9 (5-7)
[2020-10-15 21:57] LABS: Add Urine Culture? No; Amorphous Sediment Urine 2+ /hpf; Bacteria Urine TRACE /hpf; RBC Urine 0-4 /hpf (0-2); Squamous Epithelial Cell Urine 0-4 /hpf (0-5); WBC Urine 0-4 /hpf (0-5)
[2020-10-15] MEDS: famotidine 20 mg/2 mL INJ 40 MG IVP (22:02)
== END 2020-10-15 22:46 | disposition home or self-care (01) ==
PROVIDERS: Emergency Provider Emergency Medicine; PCP Emergency Medicine
DX: K29.50 Unspecified chronic gastritis without bleeding (principal); F17.210 Nicotine dependence, cigarettes, uncomplicated
CPT/HCPCS: 12345; 80053; 81001; 83690; 84703; 85025; 86140; 96361; 96374; 96375; 99283; J2270; J2405; J2765; J3490; J7030